=== PATIENT | male | born 1945 | race Caucasian/White ===

== ENCOUNTER → 2024-02-04 11:33 | Outpatient (CLI) | payer BC, SELFPAY ==
--- NOTE | 2024-02-04 12:02 | EKG_ITS ---
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
[2024-02-04 12:32] LABS: Add Manual Diff / Slide Review NO; Basophils Absolute Auto 0 /uL (0-100); Basophils Percent Auto 0.7 % (0-2); Eosinophils Absolute Auto 200 /uL (0-450); Eosinophils Percent Auto 2.7 % (2-4); Hematocrit 46.3 % (41-53); Hemoglobin 15.8 g/dL (13.5-17.5); Lymphocytes Absolute Auto 2100 /uL (1100-4500); Lymphocytes Percent Auto 29.8 % (25-40); Mean Corpuscular HGB Conc 34.2 % (30-36); Mean Corpuscular Hemoglobin 32.9 PG (26-34); Mean Corpuscular Volume 96.4 fL (80-100); Monocytes Absolute Auto 700 /uL (0-900); Monocytes Percent Auto 9.3 % (3-14); Neutrophils Absolute Auto 4000 /uL (1500-7000); Neutrophils Percent Auto 57.5 % (50-75); Platelet Count 254 X10^3/uL (150-400); Red Cell Distribution Width 13.1 % (11.6-14.8)
[2024-02-04 15:26] LABS: BUN Creatinine Ratio 23.8 (6-22); Blood Urea Nitrogen 19 mg/dL (9-20); Calcium 9.9 mg/dL (8.4-10.2); Carbon Dioxide 25 mmol/L (22-32); Chloride 106 mmol/L (98-107); Estimated Glomerular Filt Rate > 60 mL/min (>60); Glucose 99 mg/dL (80-110); HEMOLYSIS 20 (0-50); Potassium 4.7 mmol/L (3.4-5.1); Sodium 139 mmol/L (137-145)
== END ==
PROVIDERS: PCP Physician Assistant Medical; Referring Provider Orthopaedic Surgery Orthopaedic Surgery of the Spine; Visit Provider Orthopaedic Surgery Orthopaedic Surgery of the Spine
DX: Z01.818 Encounter for other preprocedural examination (principal); Z01.812 Encounter for preprocedural laboratory examination
CPT/HCPCS: 36415; 80048; 85025; 93005

== ENCOUNTER 2024-02-22 07:18 | Inpatient (IN) | payer MEDICARE, BC, SELFPAY ==
[2024-02-17 15:42] VITALS: BMI 26.6
[2024-02-22] VITALS (16 sets, daily range): BP systolic 94–150; BP diastolic 60–97; PULSE 75–91; RESP 13–20; TEMP 36.2–37.4; O2SAT 93–98; BMI 26.6
--- NOTE | 2024-02-22 | DI.RAD.S_ITS ---
PROCEDURE: XR LUMBAR SPINE 2-3V INDICATIONS: L4-5 L5-S1 TLIF TECHNIQUE: 3 views of the lumbar spine were acquired. COMPARISON: [facility], CT, CT LUMBAR SPINE WITHOUT CONTRAST, 02/14/2024, 11:24. FINDINGS: Intraoperative posterior fusion from L4 through S1 with intervertebral spacers. There is good anatomic alignment. IMPRESSION: Intraoperative posterior fusion. Dictated by: Rona Barrera M.D. on 02/22/2024 at 16:16 Approved by: Rona Barrera M.D. on 02/22/2024 at 16:16
[2024-02-22] MEDS: ACETAMINOPHEN 325 MG TABLET 975 MG PO (08:08)
[2024-02-22] MEDS: LACTATED RINGERS 1,000 ML 42 ML IV ×2 (08:09→10:06)
--- NOTE | 2024-02-22 08:44 | PM.PREOP ---
Pre-operative Note Interval Note History & Physical reviewed/Exam performed by Physician: Yes Changes to H&P: No
[2024-02-22] MEDS: CEFAZOLIN 2 GM/100 ML PREMIX 100 ML IV (08:54)
--- NOTE | 2024-02-22 09:22 | SUR.OPER ---
Prone on spine table, head in foam head support, padded chest and pelvic supports, gel pad at knees, lower legs supported by pillows; nipples, genitalia and toes free of pressure, arms secured on foam padded arm boards at <90 degrees abduction. Tape over blanket at thigh secured to table.
[2024-02-22] MEDS: BUPIVACAINE 0.25% (PF) 60 ML, EPINEPHrine 0.15 MG INJ (09:31)
[2024-02-22] MEDS: BUPIVACAINE LIPOSOME 266 MG/20 ML VIAL INJ (12:36)
--- NOTE | 2024-02-22 12:38 | P.OP_ITS ---
Operative Date/Time/Diagnoses Date of procedure: 02/22/24 Time of procedure: 08:40 Pre-op diagnosis: 1. L4-5, L5-S1 spondylolisthesis 2. L4-5, L5-S1 history of laminectomies with epidural scarring 3. L4-5, L5-S1 spinal stenosis with radiculopathy Post-op diagnosis: same Procedure & Clinicians Procedure: 1. L4-5, L5-S1 Postero-lateral and posterior interbody fusion 2. L4-5, L5-S1 interbody cage placement. 3. L4-5, L5-S1 decompressive laminectomy with bilateral facetecomies 4. L4-5, L5-S1 Posterior segmental instrumentation 5. [place] of bone marrow from iliac crest 6. Utilization of microsurgical technique and operating microscope 7. Utilization of robotic assisted navigation Same procedure as scheduled: Yes Indications: Patient has been having chronic back pain and worsening lumbar radiculopathy. Patient had prior lumbar laminectomies at L4-5 L5-S1 level. Patient has developed significant instability at both levels with spinal stenosis and radiculopathy post surgery. Patient failed multiple conservative management with worsening pain weakness and numbness in his lower extremity. Patient has been having difficulty performing activity of daily living. After discussing risks benefits of treatment options, patient elected proceed with surgery. Surgeon: Joseph Castellano Wash Oil Pump Operator Helper: Kelly Barrera Click Yes if Unassisted: No Anesthesia Type: General Operative Notes Closure Type: primary Specimen(s): none sent Prosthetic devices, grafts, tissues, transplants, or devices: Globus CREO MIS screws, Rise cages Applied: catheter Estimated Blood Loss (mL): 100 Blood products transfused: none Procedure in detail: Patient was seen in the preoperative area. Risks and benefits of the surgery was discussed with the patient. Informed consent was obtained from the patient and placed in the chart. Surgical site was marked. Patient was taken to the operative room. General anesthesia was administered. Prophylactic antibiotic was given to the patient less than 30 min before the incision was made. Patient was placed into a prone position on the Jair table. Patient's back was then prepped and draped in the sterile fashion. Time-out was performed at this time. After patient was prepped and draped, patient's PSIS was palpated and marked bilaterally. Small 1 cm incision was made over the PSIS for placement of the reference probes. Two trocar was placed into the PSIS 1 on each side. The re ference probe was attached to the trocar of the reference apparatus. At this time the C-arm imaging was used to confirm AP and lateral of L4-L5, L5- S1 vertebrae and merged the C-arm imaging using the [employer] robotic navigation system with the CT of the lumbar spine. After successful merging was completed and confirmed, skin marker was used to asuncion out the skin incision using the [employer] robotic arm. Bilateral incision was made at this time. Pre templated trajectory was used and guided using the [employer] robotic navigation system for bilateral L4, L5, S1 pedicle screw placement. This was done by using the robotic arm to guide the high-speed bur to make a cortical entry point. Next a drill was placed also using the robotic arm and guided using the navigation system drilling partially through bilateral L4, L5 and S1 pedicles. Next L4, L5, S1 pedicle screws it was pre templated and measured was placed onto the power diesel pile driver operator and inserted into the pedicles bilaterally. After all 6 screws were placed C-arm imaging was taken of both AP and lateral to confirm the placement. Excellent placement of the screws were confirmed and a matched precisely with the pre planned screw placement using the navigation system. MARs retractor was inserted using Darwin Lab[employer] guidence. Globus MARS retractors was placed inside the incision and docked onto the L4 and L5 lamina. Using microsurgical technique and operating microscope, a L4, L5 laminectomy and L4-5, L5-S1 facetectomy was performed using a Kerrison rongeur. The laminectomy and facetectomy was performed in order to decompress patient's cauda equina as well as the nerve roots exiting at the L4-5, L5-S1 level. Patient was found have severe lateral recess and neural foramen stenosis which was fully decompressed after the laminectomy facetectomy. More than 75% of the facets were removed during the process of decompression rendering L4-5, L5-S1 level grossly unstable and required a fusion procedure at the same time. The disc space at L4-5, L5-S1 was identified, and a total diskectomy was performed at L4-5, L5-S1 level. The endplates were decorticated using a rasp and shaver. The total diskectomy and decortication was performed at L4-5, L5-S1 level in order to to accomplish a L4- 5, L5-S1 fusion. The local bone from the laminectomy and facetectomy was saved for local bone grafting. After the total diskectomy and decortication was completed, Viacel bone graft material was combined with local bone that was harvested earlier. At this time, a separate skin is incision was made over the iliac crest. A J amshidi needle was inserted into the iliac crest through a separate skin incision. 5 cc of bone marrow aspiration was obtained through the separate skin incision using a Jamshidi needle from the iliac crest. The bone marrow aspiration was combined with local bone and the Viacel bone grafting material. The bone grafting material was placed into the L4-5, L5-S1 interbody space along with a expandable cage. The cage was expanded to its maximum height using the torque limiting screwdriver. The disc preparation as well as the cage insertion were also performed under navigation guidance. After the cage was placed, AP and lateral C-arm imaging was taken to confirm placement of the cage and excellent position was confirmed. Globus MARS retractor was inserted and docked onto the L4-5, L5-S1 po sterolateral gutter on the right side. Using the power drill, posterior-lateral decortication was performed at L4-5, L5-S1 level until bleeding cortical bone was identified. The remaining bone grafting material was placed into the L4-5, L5-S1 posterior lateral gutter he order to accomplish posterolateral fusion at the L4-5, L5-S1 level. At this time the tulips were attached to the L4, L5, S1 pedicle screw shanks. After measuring the length of the rods, they were inserted into the tulips of the pedicle screws and locked in place using locking caps and torque limiting screwdriver bilaterally. Total 6 caps and 2 titanium rods was used in order to complete the posterior instrumentation construct. After all the hardware was placed, and confirmed with AP and lateral C-arm imaging, the wound was then irrigated with sterile normal saline and packed with Ray-Joe gauze for 3 min to accomplish hemostasis. After the gauze was removed the deep fascia was closed with #1 Vicryl suture. The subcutaneous layer was closed with 2-0 Vicryl. The skin was closed with skin david. Patient tolerated the procedure well. There were no complications. The Operation could not have been safely performed without compromising the technical result or length of the procedure, without the assistance of a skilled accounting manager assistant controller. The accounting manager assistant controller was medically necessary for proper positioning, retraction and manipulation of instruments, proper exposure, surgical preparation, and manipulation of tissue. Neuro monitoring system was used to monitor patient's neurologic status throughout entire procedure. There was no disturbance of the neural monitoring signals throughout the case. Complications: none Post-operative Condition: stable Disposition: PACU Plan for aftercare: Admit to inpatient hospital
[2024-02-22] MEDS: LACTATED RINGERS 1,000 ML 125 ML IV ×3 (14:00→23:13)
--- NOTE | 2024-02-22 15:20 | PT.IIE ---
Current Diagnoses Spondylolisthesis, lumbar region (02/22/24) Spinal stenosis, lumbar region without neurogenic claudication (02/22/24) Surgery Performed Operation Date: 02/22/24 08:45 Actual Procedures p L4-5, L5-S1 TLIF with posterior instrumentation-Robot - Joseph Castellano MD Medical History (Last Updated 02/17/24 @ 15:41 by Kristel Man RN) History of acquired spondylolisthesis Hx of chronic arthritis Lumbar foraminal stenosis Physical Therapy Inpatient Evaluation/Re-Eval M1 PT/OT-IP Prior Functional Status Start: 02/22/24 16:23 Freq: NEEDED Status: Active Protocol: Document 02/22/24 15:20 AB (Rec: 02/22/24 16:37 AB [id number]) Medical Review Prior Functional Status Medical History Reviewed Yes Communication able to make needs known Mobility and Gait pt stated that he was modified independent with all mobilities and ambulation without AD but occasionally uses his walking stic for uneven surfaces Social History Household Members spouse Living Arrangements House Number of Floors (Floors) Two Floors Number of Stairs To Enter/Railing? pt stays on main level of the house 1 step to enter the house Home Environment Standard Height Toilet,Walk in Shower Home Equipment Four Wheel Walker Additional Social History Comment pt has walking sticks M2 PT-IP Current Condition Start: 02/22/24 16:23 Freq: NEEDED Status: Active Protocol: Document 02/22/24 15:20 AB (Rec: 02/22/24 16:37 AB [id number]) Physical Therapy Current Condition Current Condition Evaluation Date 02/22/24 Treatment Diagnosis s/p L4-5, L5S1 TLIF; difficulty in walking Onset Date 02/22/24 M3 PT-IP Subjective Start: 02/22/24 16:23 Freq: NEEDED Status: Active Protocol: Document 02/22/24 15:20 AB (Rec: 02/22/24 16:37 AB [id number]) Subjective Physical Therapy Visit Type Type Initial Evaluation Visit Start Time 15:20 Visit Stop Time 16:05 Number of GROUNDS MAINTENANCE WORKER Visits 0 Physical Therapy Visit Comments Patient Comments agreeable to do PT Therapy Pain Assessment Pain When Pain Assessed At Rest Pain Present Pain Present Pain Reported Location back Intensity 5 Scale Used Numeric (0 - 10) Pain Behaviors Guarding Pain Management Techniques Apply Cold,Distraction, Modification of Treatment,Re- positioning,Timing of Activity with Medications M4 PT-IP Mobility and Gait Start: 02/22/24 16:23 Freq: NEEDED Status: Active Protocol: Document 02/22/24 15:20 AB (Rec: 02/22/24 16:37 AB [id number]) PT-Bed Mobility Assessment Rolling Type of Rolling Log Rolling Level of Assist Contact Guard Assistance Supine to Sit Supine to Sit Minimal Assistance PT-Transfer Assessment Sit to and From Stand Sit to and from Stand Moderate Assistance,Maximum Assistance,1 Person Assistance ,Use of Upper Extremities Equipment Transfer Assistive Device Gait Belt,Front Wheeled Walker Orthotic/Prosthetic Devices or Brace: No Transfers Transfer Destination Chair Transfer Technique ambulated Transfer Ability Level of Assist Moderate Assistance,Maximum Assistance,1 Person Assistance ,Use of Upper Extremities Comments Mobility Comments pt supine in bed and agreeable to do PT. spouse in room with pt. obtained PLOF and home setup. post-op folder provided and reviewed contents .educated pt on back precautions and log roll bed mobiltiy. BP supine: 144/83 O2 sat: 97% [place] 92 pt completed supine to sit log roll min A dn cues. required 2 attempts to be able to sit up. pt able to sit on EOB CGA . c/o dizziness. BP checked: 148/86. completed sit to stand x 2 attempts mod to max A and max cues. pt ambulated in room using FWW ~ 25 ft mod to max A and cues. presents with RUE shaking/tremors. ambulated with unsteady gait with R knee slight buckling but able to control with cues for quads activation. pt agreed to sit up on the chair. positioned pt on the chair. call light and table placed within reach. ice pack provided. Left pt with spouse. informed nurse regarding pt's level of assistance. informed spouse that pt will need a FWW at this time and spouse stated that she will make calls to borrow one. Gait Assessment Gait Gait Assistance Required: Moderate Assistance,Maximum Assistance Distance (Feet) 25 Able to Maintain Weight Bearing Status Yes During Gait Assistive Devices Assistive Device Gait Belt,Front Wheeled Walker Orthotic/Prosthetic Devices or Brace: No Gait Deviations General Gait Pattern Ataxic,Decreased Stride Length ,Decreased Feet Clearance,Step -to Gait Factors Limiting Gait Function Factors Limiting Gait Function Decreased Activity Tolerance, Decreased Strength,Limited Range of Motion,Pain,Poor Balance,Poor Safety Awareness PT-Balance Assessment Sitting Balance and Reactions Static Sitting Balance Ability Good Dynamic Sitting Balance Ability Good Standing Balance and Reactions Static Standing Balance Ability Fair Dynamic Standing Balance Ability Poor Device Used FWW M5 PT-IP Objective Assessments Start: 02/22/24 16:23 Freq: NEEDED Status: Active Protocol: Document 02/22/24 15:20 AB (Rec: 02/22/24 16:37 AB [id number]) Orientation Orientation/Cognition Level of Alertness Alert Orientation Name,Place,Situation Language Function Ability Hard of Hearing Safety Awareness Decreased Safety Awareness Memory Description No Deficits Noted Strength Lower Extremity Strength Assessment Right Impaired Hip 4-/5 Knee 3+/5 Coordination Assessment Gross Coordination Gross Coordination WNL Sensation Assessment Sensation Sensation Description Numbness,Tingling Comments Sensation Comments RLE chronic numbness/tingling Muscle Tone Muscle Tone WNL Yes M6 PT-IP Treatment Start: 02/22/24 16:23 Freq: NEEDED Status: Active Protocol: Document 02/22/24 15:20 AB (Rec: 02/22/24 16:37 AB [id number]) Physical Therapy Treatment Education Education Provided Precautions,Weight Bearing Status,Post-Op Packet,Safety M7 PT-IP Assessment and Plan Start: 02/22/24 16:23 Freq: NEEDED Status: Active Protocol: Document 02/22/24 15:20 AB (Rec: 02/22/24 16:37 AB [id number]) PT Summary Assessment and Plan Potential Rehabilitation Potential Fair Status of Condition at Evaluation Evolving Summary Impairments Pain,ROM,Strength,Balance, Coordination,Sensation,Tone, Cognition,Bed Mobility, Transfers,Gait,Activity Tolerance Assessment Summary pt is a 78 y/o M s/p L4-5, L5S1 TLIF POD 0. pt plans to go home and spouse to assist him. pt requiring mod to max A for transfers and ambulation using FWW at this time ~ 25 ft and will likely improve during hospital stay. caregiver training and stair climbing training will be conducted when appropriate. will continue to assess progress. Goals Bed Mobility Goal Standby Assistance Transfer Goal Standby Assistance,Front Wheeled Walker Gait Goal Standby Assistance,Front Wheel Walker Gait Distance 150 Other Goals improve bed mobility, transfers, ambulation using LRAD 200 ft SBA up/down 1 step SBA Days to Meet Goals 5 Frequency of Treatment Frequency Of Treatment Twice a Day Treatment Plan Physical Therapy Treatment Plan Bed Mobility Training,Transfer Training,Gait Training, Therapeutic Exercise,Balance Retraining,Post Op Education, Discharge Planning,Hot or Cold Pack,Neuromuscular Re-ed, Coordination Retraining,Manual Therapy Precautions Lumbar Precautions Log Roll,No Twisting,Limit Bending,Lifting Restriction of 10 lbs,Gait Belt above Incisional Area Recommendations To Nursing Amount of Assist Needed 1 Person Assist Discharge Recommendations PT Discharge Recommendations Home with 24/7 Assist Available,Home Health Equipment Needed for Home Before FWW Discharge Transportation Needs at Discharge Private Vehicle
[2024-02-22] MEDS: OXYCODONE IR 5 MG TABLET PO ×2 (15:24→18:09)
[2024-02-22] MEDS: ACETAMINOPHEN 325 MG TABLET 650 MG PO (15:24)
--- NOTE | 2024-02-22 15:41 | PM.OP.1 ---
Operative Date/Time/Diagnoses Date of procedure: 02/22/24 Time of procedure: 13:00 Pre-op diagnosis: 1. L4-5 foraminal stenosis 2. L4-5
[2024-02-22] MEDS: HYDROMORPHONE 0.5 MG INJ IV (19:32)
[2024-02-22] MEDS: SENNOSIDES 8.6 MG TABLET 17.2 MG PO (21:05)
[2024-02-22] MEDS: DOCUSATE 100 MG CAPSULE PO (21:05)
[2024-02-22] MEDS: ONDANSETRON 4 MG/2 ML INJ IV (23:41)
[2024-02-23] VITALS: BP 166/94; PULSE 106; RESP 20; TEMP 36.9; O2SAT 93
[2024-02-23] MEDS: OXYCODONE IR 10 MG TABLET PO ×5 (02:24→17:51)
[2024-02-23] MEDS: ACETAMINOPHEN 325 MG TABLET 650 MG PO ×3 (02:24→14:56)
[2024-02-23 04:20] VITALS: BP 178/96; PULSE 109; RESP 22; TEMP 36.1; O2SAT 93
[2024-02-23] MEDS: HYDROMORPHONE 0.5 MG INJ IV (04:40)
[2024-02-23 05:32] LABS: Hematocrit 41.4 % (41-53); Hemoglobin 14.4 g/dL (13.5-17.5)
[2024-02-23] MEDS: DOCUSATE 100 MG CAPSULE PO (07:48)
[2024-02-23 08:00] VITALS: BP 171/100; PULSE 108; RESP 20; TEMP 36.3; O2SAT 92
--- NOTE | 2024-02-23 10:01 | PM.PNPO.1 ---
Subjective Subjective Date Patient Seen: 02/23/24 Time Patient Seen: 10:01 Interval history: Patient was having severe pain last night and significant difficulty sleeping. He notes the pain medicine this morning helped significantly and was able to finally get some rest. Current pain is moderate. He has not yet been out of bed. Lizama catheter still in place. Exam Vital Signs (past 8 hours): - 02/23/24 04:20 02/23/24 07:58 02/23/24 08:00 Temperature 96.9 F L 97.4 F L Pulse Rate 109 H 108 H Respiratory Rate 22 20 Blood Pressure 178/96 H 171/100 H Pulse Oximetry 93 92 Oxygen Delivery Method Room Air Oxygen Flow Rate 0 0 Oxygen Delivery Method Room Air Oxygen Flow Rate 0 Narrative Exam Narrative: 78-year-old male resting comfortably in bed no apparent distress. Neurovascular status is intact bilateral extremities. Const General: cooperative and comfortable Nutritional Appearance: average body habitus Orientation: alert Resp Effort & Inspection: normal respiratory effort and able to speak in complete sentences Objective Labs 02/23/24 04:55 Labs: Laboratory Results - last 24 hr 02/23/24 04:55 Hgb 14.4 Hct 41.4 PFSH Medical History (Updated 02/17/24 @ 15:41 by Kristel Man RN) Hx of chronic arthritis Lumbar foraminal stenosis History of acquired spondylolisthesis Social History household members: spouse Smoking Status: Former smoker alcohol intake: current Assessment & Plan Post-op Postoperative Procedures: Procedures Operation Date: 02/22/24 08:45 Actual Procedure Side Surgeon p L4-5, L5-S1 TLIF with posterior instrumentation-Robot Joseph Castellano MD Postoperative day: 1 Postoperative status: doing well Postoperative plan narrative: DC Lizama catheter Mobilize with physical therapy, limit bending, twisting, lifting Multimodal pain management Likely discharge home later today
--- NOTE | 2024-02-23 11:26 | PT-IP ANOTE ---
Pt not appropriate for PT at this time. He has high BP and just worked with OT. PT will check on pt in the afternoon.
--- NOTE | 2024-02-23 11:28 | OT.IP.EVAL ---
Current Diagnoses Spondylolisthesis, lumbar region (02/22/24) Spinal stenosis, lumbar region without neurogenic claudication (02/22/24) Surgery Performed Operation Date: 02/22/24 08:45 Actual Procedures p L4-5, L5-S1 TLIF with posterior instrumentation-Robot - Joseph Castellano MD Past Medical History (Last Reviewed 02/23/24 @ 14:15 by Ramon Santana PA-C) History of acquired spondylolisthesis Hx of chronic arthritis Lumbar foraminal stenosis Occupational Therapy Inpatient Evaluation/Re-Eval M1 PT/OT-IP Prior Functional Status Start: 02/22/24 16:23 Freq: NEEDED Status: Active Protocol: Document 02/23/24 14:44 CGR (Rec: 02/23/24 15:03 CGR [id number]) Medical Review Prior Functional Status Medical History Reviewed Yes Communication able to make needs known Mobility and Gait pt stated that he was modified independent with all mobilities and ambulation without AD but occasionally uses his walking stick for uneven surfaces Activities of Daily Living and IADL's Pt states that he was IND for ADLs at baseline Social History Household Members spouse Living Arrangements House Number of Floors (Floors) Two Floors Number of Stairs To Enter/Railing? pt stays on main level of the house 1 step to enter the house Home Environment Standard Height Toilet,Walk in Shower Home Equipment Four Wheel Walker Additional Social History Comment pt has walking sticks M2 OT-IP Current Condition Start: 02/23/24 14:44 Freq: Status: Active Protocol: Document 02/23/24 14:44 CGR (Rec: 02/23/24 15:03 CGR [id number]) Occupational Therapy Current Condition Current Condition Evaluation Date 02/23/24 Treatment Diagnosis L4-5, L5-S1 TLIF Diagnosis Onset Date 02/22/24 Post Operative Precautions Lumbar Precautions Log Roll,No Twisting,Limit Bending,Lifting Restriction of 10 lbs,Gait Belt above Incisional Area M3 OT- IP Subjective and Pain Start: 02/23/24 14:44 Freq: Status: Active Protocol: Document 02/23/24 14:44 CGR (Rec: 02/23/24 15:03 CGR [id number]) OT- Subjective Occupational Therapy Visit Type Type Initial Evaluation Visit Start Time 11:06 Visit Stop Time 11:28 Notes Pt with BP 185/104, then 170/ 99. Nurisng notified and states ok for OOB activity. OT Pain Assessment Pain When Pain Assessed At Rest Pain Present Pain Present Pain Reported Location back Intensity 3 Scale Used Numeric (0 - 10) Management Techniques Apply Cold,Distraction, Modification of Treatment,Re- positioning,Timing of Activity with Medications M4 OT- IP ADL's Start: 02/23/24 14:44 Freq: Status: Active Protocol: Document 02/23/24 14:44 CGR (Rec: 02/23/24 15:03 CGR [id number]) OT [id number] Comments OT Self-Feeding Comments not meal time OT ADL-Grooming Comments OT Grooming Comments pt declines OT ADL-Oral Care Comments Oral Care Comments pt declines OT ADL-Dressing Comments OT Dressing Comments discussed the need for LB dressing equipment and agreeable to doing tomorrow. Pt states he is not feeling his best right now and is tired. OT ADL-Toileting General Evaluation Toileting Ability Total Assistance Comments OT Toileting Comments pierson OT ADL-Bathing Comments OT Bathing Comments not performed M5 OT- IP IADL's Start: 02/23/24 14:44 Freq: Status: Active Protocol: Document 02/23/24 14:44 CGR (Rec: 02/23/24 15:03 CGR [id number]) OT-Instrumental Activities of Daily Living Deficits IADL Deficits Identified No Deficits Home Safety Awareness Awareness of Need for Assistance at Home Good Awareness Ability to Problem Solve Emergency Able to Problem Solve Situations Medication Management Medication Management No Deficits Identified Money Management Money Management No Deficits Identified Meal Preparation Meal Preparation No Deficits Identified Allied Health Professional Allied Health Professional No Deficits Identified Driving Driving 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 OT- IP Functional Cognition Start: 02/23/24 14:44 Freq: Status: Active Protocol: Document 02/23/24 14:44 CGR (Rec: 02/23/24 15:03 CGR [id number]) Cognitive Factors Limiting Selfcare Function Cognitive Ability Level of Alertness Alert Patient Orientation Name,Age,Birthday,Month,Date, Year,Day of Week,Place, Situation Attention Span Ability Capable of Focused Attention, Capable of Sustained Attention Ability to Follow Commands Able to Follow Multi-Step Commands OT- Vision and Hearing OT- Hearing Assessment OT- Hearing Assessment WFL OT- Vision Assessment Visual Acuity Glasses All The Time Visual Attentiveness WFL Occular Pursuits WFL Visual Convergence WFL Vision Assessment Comments Pt wears bifocals M7 OT- IP Mobility and Balance Start: 02/23/24 14:44 Freq: Status: Active Protocol: Document 02/23/24 14:44 CGR (Rec: 02/23/24 15:03 CGR [id number]) OT- Bed Mobility Assessment Rolling Type of Rolling Log Rolling,Roll to Right Level of Assistance Standby Assistance Supine to Sit Supine to Sit Assist Standby Assistance Sit to Supine Sit to Supine Assist Standby Assistance Scooting Scooting to Edge of Bed Standby Assistance OT-Transfer Assessment Sit to and From Stand Sit to and from Stand Minimal Assistance Transfers Transfer Ability Minimal Assistance Technique Transfer Destination Bed,Chair Transfer Technique Stand Step Pivot Devices Transfer Assistive Devices Gait Belt,Front Wheeled Walker Comments Mobility Comments bed mobility with SBA but min a for transfer OT- Balance Assessment Sitting Balance and Reactions Static Sitting Balance Ability Good Dynamic Sitting Balance Ability Good M8 OT- IP Objective Assessments Start: 02/23/24 14:44 Freq: Status: Active Protocol: Document 02/23/24 14:44 CGR (Rec: 02/23/24 15:03 CGR [id number]) OT Gross Range of Motion Upper Extremity Range of Motion Assessment Within Functional Limits OT Strength Upper Extremity Strength Assessment Within Functional Limits Comments Strength Comments 4+/5 OT- Coordination Assessment Upper Extremity Finger to Nose Test Within Functional Limits Finger Tapping Test Within Functional Limits OT-Muscle Tone Assessment Muscle Tone WNL Yes OT Sensation Assessment Edema Edema Absent M9 OT- IP Assessment and Plan Start: 02/23/24 14:44 Freq: Status: Active Protocol: Document 02/23/24 14:44 CGR (Rec: 02/23/24 15:03 CGR [id number]) OT Summary Assessment and Plan Potential Rehabilitation Potential Excellent Analytic Complexity at Evaluation Moderate Summary OT Impairments Pain,Balance,Functional Mobility,Grooming,Dressing, Toileting,Bathing,Toilet Transfers,Shower Transfers, Activity Tolerance Progress Towards Goals Slow Progress due to Pain Assessment Summary Pt presents as a moderate complexity evaluation s/p admit for L4-L5, L5-S1, TLIF. Pt with increased pain over night and this morning but was able to rest and is feeling better at time of eval. Pt with BP of 185/104, then 170/ 99 sitting EOB. Nursing aware and OKs out of bed activity. Activity limited d/t high BP but pt transfered to chair and participated in OT eval. Pt will continue to follow for LB dressing and ADLs with new back precautions. Goals Grooming Goal Independent Dressing Goal Independent,Long Handled Shoe Horn,Consumer Analyst,Sock Aid Toileting Goal Independent Bathing Goal Independent Toilet Transfer Goal Independent Shower Transfer Goal Independent Days to Meet Goals 3 Frequency of Treatment Other frequency 5x a week Treatment Plan OT Treatment Plan ADL Training,Functional Mobility,Patient/Family Education,Discharge Planning Other Treatment Recommendations and Next LB dressing training. Treatment Focus Discharge Recommendations OT Discharge Recommendations Home with Assistance Home Equipment Needs 2ww, toilet heightner/BSC, shower chair Transportation Needs at Discharge Private Vehicle
[2024-02-23 12:00] VITALS: BP 170/99; PULSE 93; RESP 18; TEMP 36.9; O2SAT 95
--- NOTE | 2024-02-23 14:12 | PM.DS.1 ---
History of Present Illness History of Present Illness Date Patient Seen: 02/23/24 Time Patient Seen: 14:12 Chief complaint: Back pain Narrative: See progress note Discharge Providers Provider Date of admission: 02/22/24 07:18 Discharge Date: 02/23/24 Primary care physician: Andra Hester PA-C Consults: 02/22/24 13:52 Consult to Occupational Therapy Evaluate & Treat Comment: Physician Instructions: Evaluate and treat Consult to Physical Therapy Evaluate & Treat Comment: Physician Instructions: Evaluate and Treat Discharge provider: Ramon Santana PA-C Summary Hospital Course Discharge Diagnosis: 1. L4-5, L5-S1 spondylolisthesis 2. L4-5, L5-S1 history of laminectomies with epidural scarring 3. L4-5, L5-S1 spinal stenosis with radiculopathy Hospital Course: 1. L4-5, L5-S1 Postero-lateral and posterior interbody fusion 2. L4-5, L5-S1 interbody cage placement. 3. L4-5, L5-S1 decompressive laminectomy with bilateral facetecomies 4. L4-5, L5-S1 Posterior segmental instrumentation 5. [facility] of bone marrow from iliac crest 6. Utilization of microsurgical technique and operating microscope 7. Utilization of robotic assisted navigation Same procedure as scheduled: Yes Indications: Patient has been having chronic back pain and worsening lumbar radiculopathy. Patient had prior lumbar laminectomies at L4-5 L5-S1 level. Patient has developed significant instability at both levels with spinal stenosis and radiculopathy post surgery. Patient failed multiple conservative management with worsening pain weakness and numbness in his lower extremity. Patient has been having difficulty performing activity of daily living. After discussing risks benefits of treatment options, patient elected proceed with surgery. Surgeon: Joseph Castellano Emr Trainer: Kelly Barrera Click Yes if Unassisted: No Anesthesia Type: General Operative Notes Closure Type: primary Specimen(s): none sent Prosthetic devices, grafts, tissues, transplants, or devices: Globus CREO MIS screws, Rise cages Applied: catheter Estimated Blood Loss (mL): 100 Blood products transfused: none Patient admitted to the hospital for the above-mentioned procedure. Patient consented to the same. Patient underwent L4-L5 L5-S1 February 22, 2024. Patient progressing as expected. Patient has assistance at home. Patient will be discharged home today in stable condition. Status at Discharge Cognitive/behavioral status at discharge: at baseline, oriented Functional status at discharge: uses cane/walker Overall status at discharge: patient is progressing back to baseline Exam Vital Signs (past 8 hours): - 02/23/24 07:58 02/23/24 08:00 02/23/24 12:00 Temperature 97.4 F L 98.4 F Pulse Rate 108 H 93 H Respiratory Rate 20 18 Blood Pressure 171/100 H 170/99 H Pulse Oximetry 92 95 Oxygen Delivery Method Room Air Oxygen Flow Rate 0 Oxygen Delivery Method Room Air Oxygen Flow Rate 0 Narrative Exam Narrative: See progress note Objective Labs 02/23/24 04:55 Labs: Laboratory Results - last 24 hr 02/23/24 04:55 Hgb 14.4 Hct 41.4 PFSH Medical History Hx of chronic arthritis Lumbar foraminal stenosis History of acquired spondylolisthesis Social History household members: spouse Smoking Status: Former smoker alcohol intake: current Discharge Assessment & Plan Assessment and Plan Assessment: Stable status post lumbar fusion Plan of Treatment: Limit bending, twisting, lifting Keep dressing clean and dry Multimodal pain management Discharge home today after PT if safe for home environment Discharge Plan Discharge orders & Medications Discharge Orders: Discharge (Order); Ordered 02/23/24 Ordered By: Ramon Santana Prescriptions: New acetaminophen 325 mg Tablet 650 mg PO Q6H PRN (Reason: Fever/Mild Pain (1-3)) Qty: 60 0RF docusate sodium 100 mg Capsule 100 mg PO BID Qty: 20 0RF oxycodone 5 mg Tablet 5 mg PO Q3H PRN (Reason: Pain, Moderate (4-6)) Qty: 45 0RF Continued Aler-Tab 10 mg PO PRN PRN (Reason: Allergy Symptoms) ibuprofen 200 mg Capsule 400 mg PO PRN PRN (Reason: Pain (Scale Score 1-3)) Discontinued acetaminophen [Tylenol Arthritis] 650 mg Tablet Extended Release 1,300 mg PO PRN PRN (Reason: Pain (Scale Score 1-3)) Follow up/Referrals: Joseph Castellano MD [Physician] - 03/08/24 1:30 pm (Follow up w/ Ada Cole PA-C, at [facility] office in [place].) Andra Hester PA-C [Primary Care Provider] - Diet/Activity/Treatments Diet: Diet as Tolerated Activity: No deep bending or twisting at the waist. No lifting more than 10 pounds. Skin/Wound/Dressing Care Report to your healthcare provider any signs of infection, such as:: chills, fever, night sweats, unusual drainage and unusual redness Dressing: May shower. Keep dressings as dry as possible. If dressings become wet or dirty, remove and replace with clean, dry gauze. No bathing or otherwise soaking incisions. Do not apply any creams, lotions, or ointments to incisions. Visit Report/Discharge Packet Instructions: DI for Prescription Opioid Use Stand Alone Forms: Patient Portal/API, Stroke Signs & Symptoms, Surgery Discharge Discharge Data Primary Care Provider: Andra Hester
--- NOTE | 2024-02-23 14:21 | PT.IPTN ---
Current Diagnoses Spondylolisthesis, lumbar region (02/22/24) Spinal stenosis, lumbar region without neurogenic claudication (02/22/24) Surgery Performed Operation Date: 02/22/24 08:45 Actual Procedures p L4-5, L5-S1 TLIF with posterior instrumentation-Robot - Joseph Castellano MD Physical Therapy Treatment Note M2 PT-IP Current Condition Start: 02/22/24 16:23 Freq: NEEDED Status: Active Protocol: Document 02/22/24 15:20 AB (Rec: 02/22/24 16:37 AB [id number]) Physical Therapy Current Condition Current Condition Evaluation Date 02/22/24 Treatment Diagnosis s/p L4-5, L5S1 TLIF; difficulty in walking Onset Date 02/22/24 M3 PT-IP Subjective Start: 02/22/24 16:23 Freq: NEEDED Status: Active Protocol: Document 02/23/24 14:48 TS (Rec: 02/23/24 14:58 TS [id number]) Subjective Physical Therapy Visit Type Type Treatment Note Visit Start Time 14:21 Visit Stop Time 14:45 Number of BILL BOARD POSTER Visits 1 Physical Therapy Visit Comments Patient Comments Pt found resting in bed, continues to have high BP, 189 /113 in supine. He has some tremors/shaking in standing. Pt is agreeable to PT. Therapy Pain Assessment Pain When Pain Assessed At Rest Pain Present Pain Present Denied Pain M4 PT-IP Mobility and Gait Start: 02/22/24 16:23 Freq: NEEDED Status: Active Protocol: Document 02/23/24 14:48 TS (Rec: 02/23/24 14:58 TS [id number]) PT-Bed Mobility Assessment Rolling Type of Rolling Log Rolling Level of Assist Standby Assistance Supine to Sit Supine to Sit Standby Assistance Sit to Supine Sit to Supine Standby Assistance Scooting Scooting to Edge of Bed Standby Assistance PT-Transfer Assessment Sit to and From Stand Sit to and from Stand Contact Guard Assistance,1 Person Assistance,Use of Upper Extremities Equipment Transfer Assistive Device Gait Belt,Front Wheeled Walker Orthotic/Prosthetic Devices or Brace: No Comments Mobility Comments BP 189/113 in supine. Supine to sit SBA, pt demonstrates good awareness of spinal precautions. STS with FWW CGA. He ambulates ~30'SBA with FWW , has some tremors with gait. BP in standing 181/97. sit to supine into bed SBA, pt demonstrates good logroll technique. Pt was left in bed, nursing notified. Gait Assessment Gait Gait Assistance Required: Standby Assistance Distance (Feet) 30 Able to Maintain Weight Bearing Status Yes During Gait Assistive Devices Assistive Device Gait Belt,Front Wheeled Walker Orthotic/Prosthetic Devices or Brace: No Gait Deviations General Gait Pattern Ataxic,Decreased Stride Length ,Decreased Feet Clearance,Step -to Gait Factors Limiting Gait Function Factors Limiting Gait Function Decreased Activity Tolerance, Decreased Strength,Limited Range of Motion,Pain,Poor Balance,Poor Safety Awareness PT-Balance Assessment Sitting Balance and Reactions Static Sitting Balance Ability Good Dynamic Sitting Balance Ability Good Standing Balance and Reactions Static Standing Balance Ability Fair Dynamic Standing Balance Ability Fair Device Used FWW M5 PT-IP Objective Assessments Start: 02/22/24 16:23 Freq: NEEDED Status: Active Protocol: Document 02/22/24 15:20 AB (Rec: 02/22/24 16:37 AB [id number]) Orientation Orientation/Cognition Level of Alertness Alert Orientation Name,Place,Situation Language Function Ability Hard of Hearing Safety Awareness Decreased Safety Awareness Memory Description No Deficits Noted Strength Lower Extremity Strength Assessment Right Impaired Hip 4-/5 Knee 3+/5 Coordination Assessment Gross Coordination Gross Coordination WNL Sensation Assessment Sensation Sensation Description Numbness,Tingling Comments Sensation Comments RLE chronic numbness/tingling Muscle Tone Muscle Tone WNL Yes M6 PT-IP Treatment Start: 02/22/24 16:23 Freq: NEEDED Status: Active Protocol: Document 02/23/24 14:48 TS (Rec: 02/23/24 14:58 TS [id number]) Physical Therapy Treatment Education Education Provided Precautions,Weight Bearing Status,Post-Op Packet,Safety M7 PT-IP Assessment and Plan Start: 02/22/24 16:23 Freq: NEEDED Status: Active Protocol: Document 02/23/24 14:48 TS (Rec: 02/23/24 14:58 TS [id number]) PT Summary Assessment and Plan Potential Rehabilitation Potential Fair Summary Impairments Pain,ROM,Strength,Balance, Coordination,Sensation,Tone, Cognition,Bed Mobility, Transfers,Gait,Activity Tolerance Progress Towards Goals Progressing Toward Goals Assessment Summary Nahum is making progress with his mobility. He is SBA for all bed mobility and demonstrates good carryover. He ambulates SBA short distances in the room. His BP remains high 189/113 supine and 181/97 standing. PT is recommending pt can return home with assist. Goals Bed Mobility Goal Standby Assistance Transfer Goal Standby Assistance,Front Wheeled Walker Gait Goal Standby Assistance,Front Wheel Walker Gait Distance 150 Other Goals improve bed mobility, transfers, ambulation using LRAD 200 ft SBA up/down 1 step SBA Days to Meet Goals 5 Frequency of Treatment Frequency Of Treatment Twice a Day Treatment Plan Physical Therapy Treatment Plan Bed Mobility Training,Transfer Training,Gait Training, Therapeutic Exercise,Balance Retraining,Post Op Education, Discharge Planning,Hot or Cold Pack,Neuromuscular Re-ed, Coordination Retraining,Manual Therapy Precautions Lumbar Precautions Log Roll,No Twisting,Limit Bending,Lifting Restriction of 10 lbs,Gait Belt above Incisional Area Recommendations To Nursing Amount of Assist Needed 1 Person Assist Discharge Recommendations PT Discharge Recommendations Home with Assistance,Home Health Equipment Needed for Home Before FWW Discharge Transportation Needs at Discharge Private Vehicle
--- NOTE | 2024-02-23 14:34 | CM.DANOTE ---
DCP Assessment Note: Brief Pt is a 78yo M here POD1 TLIF with Dr. Castellano PCP Andra Hester Payer Medicare A only and [employer] CLOTH PICKER reviewed EMR. Pt is a man from [place]. Lives with Spouse Fabian ([phone]). Per PT, rec home with assistance. Per RN report, pt having a lot of pain and did not get much sleep last night. CLOTH PICKER entered room and introduced self and role. CLOTH PICKER met briefly with spouse and pt in room. Spouse reports pt preference is to dc home with her support, she is working on getting the right walker she needs. Agreeable to dc home either later today or tomorrow. Deny CM/DCP needs. BOWLING ALLEY OPERATOR Juan Jose came into room to work with pt, CLOTH PICKER allowed them to work. Per chart, Ortho PA dc'd pt home with spouse support today. P: anticipate home with spouse support and OP follow up. No identified barriers to safe dc home at this time. CM team will continue to follow as needed VERONIKA Le Discharge Planning/Care Management CM Discharge Assessment Start: 02/23/24 14:33 Freq: Status: Active Protocol: Document 02/23/24 14:33 SL (Rec: 02/23/24 14:34 SL [id number]) Discharge Planning Assessment Assigned Boiler Setter VERONIKA Bourgeois DPOA/Assigned Designee Name paris Peralta Contact Information [phone] Advance Directives? No History Provided By Patient Prior Living Arrangements House Household Members spouse Type of transporation used prior to Drives own vehicle admit Independent with ADL's Yes Is patient alert and oriented? Yes DME Already Rented / Owned FWW / Walker Barriers to Discharge No Discharge Plan Home Transportation Arrangement spouse in pOV Referrals Initiated None needed Whiteboard Updated in Patient Room with Yes name and ext. # of Boiler Setter Review Status In Process Please Provide Date Initial DC 02/23/24 Assessment Was Performed Next Review Type Continued Stay Review Pre-Anesthesia Assessment Start: 02/16/24 16:19 Freq: Status: Complete Protocol: Document 02/17/24 15:42 TC (Rec: 02/17/24 15:59 TC [id number]) Pre-Anesthesia Assessment Preferred Name Arnulfo Patient Information Reviewed Via Phone Assessment Assessment Completed With Patient Primary Care Provider Andra Hill-Susie Medical Clearance Received Not Applicable Seen Specialist in Last 12 Months Yes Specialist Seen Opthamologist/Poker Room Manager, Orthopedist Mold Checker Required No Height 165.1 cm Weight 72.575 kg Body Mass Index (BMI) 26.6 Hearing Ability Use of Hearing Aid Visual Impairment Partially Limited Visual Assist Glasses Dentition Type Teeth, Natural Present Barriers to Learning None Hx Anesthesia Reactions No Hx Family Anesthesia Reaction No Hx Malignant Hyperthermia No Hx Blood Transfusions No Hx Blood Transfusion Reaction No Anesthesia Review Requested No Account Processor No alcohol intake current alcohol intake frequency 0-2 drinks per day Smoking Status Former smoker Tobacco type cigarettes,pipe how long ago did patient quit smoking 1975 Substance Use Type does not use Pain Present Pain Reported Comment back Musculoskeletal Symptoms Abnormal Gait,Back Pain, Difficulty Walking,Joint Pain, Joint Stiffness,Numbness, Radiating Pain into Limb History of Falling (Recent or History of No ) Comment right LE Patient is completely paralyzed or No completely immobile Ambulatory Aid None/bed rest/nurse assist Prosthesis or Orthotic Device Cane Gait/Transferring Normal/bedrest/immobile Mental Status Oriented to own ability Does patient have FREDERICK/SOB No Hx Sleep Apnea No CPAP/BIPAP use not prescribed Currently Taking a Beta Gerri No Can You Climb a Flight of Stairs Without Yes SOB Hx Chest Pain No Hx SOB No Hx Syncope or Dizziness No Anti-Coagulant Therapy No Has a Emergency Vehicle Driver No Cardiac Testing Yes: EKG Hx Pacemaker/ICD No Pacemaker Rep Required? No Cardiac Clearance Received Not Applicable Dysphagia No Genitourinary Symptoms Difficulty Urinating Urinary Catheter Present No Hx Urinary Self Catheterization No Diabetes No Hx Drug Resistant Organism No Presence of External or Internal Medical Yes: left wrist hardware Devices Have you had any close contact with No someone diagnosed with COVID-19? Are you experiencing any of these No symptoms symptoms? Evaluation/Screening for possible COVID- Yes 19 infection completed? Received a COVID vaccine? Yes Received all doses? No Marital Status Lives With spouse Current Living Arrangements House Number of Floors (Floors) Two Floors Number of Stairs To Enter/Railing? all living on one floor, single step no railing Support System Spouse Does the Patient Have Assistance After Yes Surgery Patient Discharge Plan Description Return Home Additional comment Dr Castellano advised 1-2 days overnight Feels Safe in Current Environment Yes Been Physically Hurt or Threatened By a No Person in Current Environment Do you have thoughts of harming yourself None or others? Are you currently considering suicide? No Do you have a plan to hurt yourself or No Plan others? Do You Have Any Spiritual Beliefs That No May Affect Your HC Choices? Do You Have Any Cultural Practices That No May Affect Your HC Choices? Who Can We Speak to About Patient's Care Carlos Health Care Proxy/Next of Kin Carlos Health Care Proxy Emergency Contact Name Carlos Emergency Contact Advance Directives? No Power of Leak Patcher No PAC Instructions Assistance for 24 hours post- op,Do not shave/clip surgical site,Durable medical equipment ,Medications to take/avoid,No ETOH/petroleum product on skin DOS,Post-op transportation, Pre-surgical wash,Sensory aids ,Sturdy shoes/comfortable clothes,Do not bring valuables and remove jewelry
--- NOTE | 2024-02-23 18:01 | PC.NURSE ---
Discharge Note Patient d/c'd to home with at 1800. Escorted to hospital exit by staff member via wheelchair. Discharge instructions on TLIF, precautions, oxycodone given to pt and . Pt voided x2 prior to d/c. BP up to 180s/110s with PT, SHYANNE Santana aware, BP decreased to 170s/80s at time of discharge. All belongings with pt including cell phone, clothing, shoes. No valuables in safe and no meds in pharmacy.
== END 2024-02-23 18:00 | disposition home or self-care (01) | DRG 428 ==
PROVIDERS: Admitting Provider Orthopaedic Surgery Orthopaedic Surgery of the Spine; PCP Physician Assistant Medical; Referring Provider Orthopaedic Surgery Orthopaedic Surgery of the Spine; Visit Provider Orthopaedic Surgery Orthopaedic Surgery of the Spine
PROC: 0SG00AJ Fusion of Lumbar Vertebral Joint with Interbody Fusion Device, Posterior Approach, Anterior Column, Open Approach (ICD-10-PCS; principal; 2024-02-22 08:45)
DX: M43.16 Spondylolisthesis, lumbar region (principal); M48.07 Spinal stenosis, lumbosacral region; M48.061 Spinal stenosis, lumbar region without neurogenic claudication; M54.16 Radiculopathy, lumbar region; M54.17 Radiculopathy, lumbosacral region; M96.1 Postlaminectomy syndrome, not elsewhere classified
CPT/HCPCS: 36415; 72100; 76000; 85014; 85018; 97116; 97162; 97166; 97530; 97535; C1713; C1831; C9290; J0171; J0330; J0690; J1100; J1170; J2405; J2704; J3010